=== PATIENT | male | born 1965 | race Caucasian/White ===

== ENCOUNTER 2018-12-02 13:10 | Day surgery (SDC) | payer OTHER ==
[~2018-12-02] VITALS: Ht 177.8 cm; Wt 100.1 kg
[~2018-12-02 13:10] MED LIST: CEPH500 PO; Colace100 MG PO; IBUP800 PO; Miralax17 GM PO; Norco 5-325 Ta1 EACH PO
--- NOTE | 2018-12-02 14:06 | NUR ---
History, Chart, Medications and Allergies reviewed before start of procedure. Patient confirms NPO status and agrees with scheduled surgery. Lungs clear T/O to Auscultation. Patient states colon prep results clear. Pre-Op teaching done. Pt verbalizes understanding. Patient States Post-Procedure ride home has been arranged.
[2018-12-02] MEDS ORDERED: Prilosec Otc20 MG PO (14:16)
--- NOTE | 2018-12-02 14:33 | NUR ---
12/02/18 1433 Dallas Brantley PATIENT DETERMINED TO BE ASA APPROPRIATE FOR PROPOFOL SEDATION PRIOR TO START OF PROCEDURE BY . 3-LEAD EKG REVIEWED WITH PHYSICIAN PRIOR TO START OF PROCEDURE.History, Chart, Medications and Allergies reviewed before start of procedure.MONITOR INTACT WITH CONTINUOUS PULSE OXIMETRY AND INTERMITTENT BP.O2 VIA N/C INTACT THROUGHOUT SEDATION/PROCEDURE.
--- NOTE | 2018-12-02 15:54 | NUR ---
Patient up to Ambulate independently. Gait steady. Discharge instructions reviewed with patient. Patient verbalizes understanding. Copy given to patient to take home. Patient States Post-Procedure ride home has been arranged. Discharged via wheelchair to private car for ride home.
== END 2018-12-02 22:42 | disposition home or self-care (01) ==
LOC: SURS 13:10 → ORSCMMR 13:10 → ORD 14:45 → ORSCMMR 22:42
PROVIDERS: Student in an Organized Health Care Education/Training Program
PROC: 0DBP8ZX Excision of Rectum, Via Natural or Artificial Opening Endoscopic, Diagnostic (ICD-10-PCS; principal; 2018-12-02 14:45)
PROC: 0DBN8ZX Excision of Sigmoid Colon, Via Natural or Artificial Opening Endoscopic, Diagnostic (ICD-10-PCS; principal; 2018-12-02 14:45)
DX: K92.1 Melena (principal); C20 Malignant neoplasm of rectum; D12.5 Benign neoplasm of sigmoid colon; R15.0 Incomplete defecation; R10.9 Unspecified abdominal pain; F17.210 Nicotine dependence, cigarettes, uncomplicated; Z79.899 Other long term (current) drug therapy
CPT/HCPCS: 88305; J2250; J7120

== ENCOUNTER 2019-03-14 06:00 | Day surgery (SDC) | payer OTHER, SELFPAY ==
[~2019-03-14] VITALS: Ht 177.8 cm; Wt 98.9 kg
[~2019-03-14 06:00] MED LIST changes: +ASCO500 PO; +CAPE500; +CYAN500; +IBUP800; +MIRALAX; +OMEGA 3; +Prilosec Otc20 MG PO; +TUMS; +VITAMIN D-32000 UNIT PO; +Voltaren100 GM
--- NOTE | 2019-03-14 07:00 | NUR ---
Ambulatory in Day Surgery. Surgical site prepped with 2% Chlorhexidine cloth wipe. History, Chart, Medications and Allergies reviewed before start of procedure. Lungs clear T/O to Auscultation. Patient confirms NPO status and agrees with scheduled surgery. Pre-Op teaching done. Pt verbalizes understanding. Patient States Post-Procedure ride home has been arranged.
--- NOTE | 2019-03-14 08:40 | NUR ---
PT ALERT, DRESSING TO R CHEST AND NECK D&I. PT PROVIDED WITH COFFEE TO DRINK. BACK TO SEE PATIENT.
--- NOTE | 2019-03-14 09:00 | NUR ---
REVIEWED DISCHARGE INSTRUCTIONS WITH PATIENT. Patient States Post-Procedure ride home has been arranged.
--- NOTE | 2019-03-14 09:12 | NUR ---
Discharged via wheelchair to private car for ride home.
--- NOTE | 2019-03-17 12:52 | NUR ---
03/17/19 1252 Nathalia Landers VERIFICATIONS: EDIT CHART.
== END 2019-03-14 09:12 | disposition home or self-care (01) ==
LOC: ORSCMMR 06:00 → ORD 07:30 → ORSCMMR 07:30
PROVIDERS: Surgery
PROC: B5131ZA Fluoroscopy of Right Jugular Veins using Low Osmolar Contrast, Guidance (ICD-10-PCS; principal; 2019-03-14 07:30)
PROC: 05HM33Z Insertion of Infusion Device into Right Internal Jugular Vein, Percutaneous Approach (ICD-10-PCS; principal; 2019-03-14 07:30)
DX: C20 Malignant neoplasm of rectum (principal); F17.210 Nicotine dependence, cigarettes, uncomplicated; Z79.899 Other long term (current) drug therapy; K21.9 Gastro-esophageal reflux disease without esophagitis
CPT/HCPCS: 77001; C1788; J0690; J1100; J1642; J2250; J2405; J2704; J3010; J7120

== ENCOUNTER 2019-04-03 15:28 | Day surgery (SDC) | payer OTHER | END 2019-04-03 16:00 | disposition home or self-care (01) | LOC: ATC 15:28 | DX: Z45.1 Encounter for adjustment and management of infusion pump (principal); C20 Malignant neoplasm of rectum; F17.200 Nicotine dependence, unspecified, uncomplicated; Z79.899 Other long term (current) drug therapy | CPT/HCPCS: 96523 ==

== ENCOUNTER 2019-07-20 09:42 | Inpatient (IN) | payer OTHER ==
[~2019-07-20] VITALS: Ht 177.8 cm; Wt 95.9 kg
[2019-07-20 09:59] LABS: Source, Urine Clean Catch
[2019-07-20] MEDS ORDERED: TAMS.4ER PO (10:02)
[2019-07-20] MEDS ORDERED: OXYC5 PO (10:02)
[2019-07-20 10:04] LABS: Bilirubin, Urine Neg (Neg); Blood, Urine 4+ (Neg); Glucose Qualitative, Urine Neg (Neg); Ketones, Urine Neg (Neg); Leukocyte Esterase, Urine 3+ (Neg); Nitrite, Urine Pos (Neg); Protein, Urine 3+ (Neg); Specific Gravity, Urine 1.015 (1.003-1.022); Urobilinogen, Urine NORM (Normal)
[2019-07-20 10:15] LABS: Appearance, Urine Turbid (Clear); Color, Urine Yellow (P-Yellow)
[2019-07-20 10:16] LABS: White Blood Cells, Urine TNTC /hpf (0-5)
[2019-07-20 10:17] LABS: Bacteria Many /hpf; Squamous Epithelial Cells Rare /hpf (Few)
[2019-07-20 10:24] LABS: BASOPHILS ABSOLUTE AUTO 0.05 K/mm3 (0.00-0.23); BASOPHILS PERCENT AUTO 0 % (0-2); EOSINOPHILS PERCENT AUTO 1 % (0-6); Hematocrit 36.8 % (37.0-53.0); Hemoglobin 12.3 g/dL (13.5-17.5); IMMATURE GRAN ABSOLUTE AUTO 0.17 K/mm3 (0.00-0.10); IMMATURE GRAN PERCENT AUTO 1 % (0-1); LYMPHOCYTES ABSOLUTE AUTO 0.39 K/mm3 (0.84-5.20); LYMPHOCYTES PERCENT AUTO 2 % (21-46); MONOCYTES ABSOLUTE AUTO 1.03 K/mm3 (0.16-1.47); MONOCYTES PERCENT AUTO 7 % (4-13); Mean Corpuscular HGB 32.6 pg (26.0-34.0); Mean Corpuscular HGB Conc 33.4 g/dL (31.5-36.5); Mean Corpuscular Volume 98 fL (80-100); Mean Platelet Volume 8.7 fL (9.1-12.4); NEUTROPHILS ABSOLUTE AUTO 14.09 K/mm3 (1.96-9.15); NEUTROPHILS PERCENT AUTO 88 % (41-73); Platelet Count 333 K/mm3 (150-400); RDW Standard Deviation 50.7 fL (35.1-46.3); Red Blood Cell Count 3.77 M/mm3 (4.30-5.90); White Blood Cell Count 15.93 K/mm3 (4.00-11.30)
[2019-07-20 10:43] LABS: Alanine Aminotransfer (ALT/SGP 24 U/L (12-78); Albumin, Blood 2.7 g/dL (3.4-5.0); Albumin/Globulin Ratio 0.6 (0.8-1.8); Alk Phos 154 U/L (50-136); Anion Gap 6 mmol/L (6-16); Aspartate Aminotrans (AST/SGOT 22 U/L (12-37); Bilirubin, Total 0.3 mg/dL (0.1-1.0); Blood Urea Nitrogen 22 mg/dL (8-24); CO2, Blood 24 mmol/L (21-32); Calcium, Blood 9.5 mg/dL (8.5-10.1); Chloride, Blood 104 mmol/L (98-108); Creatinine, Blood 0.82 mg/dL (0.60-1.20); Globulin, Blood 4.6 g/dL (2.2-4.0); Glomerular Filtration Rate >60 (60-); Glucose, Blood 188 mg/dL (70-99); Potassium, Blood 3.9 mmol/L (3.5-5.5); Sodium, Blood 134 mmol/L (136-145); Total Protein, Blood 7.3 g/dL (6.4-8.2)
[2019-07-20] MEDS ORDERED: ACET500 PO (13:48)
--- NOTE | 2019-07-20 14:28 | NUR ---
PT ADMITTED PT ADMITTED IN STABLE CONDITION WITH VSS. BLADDER SCAN PERFORMED. OVER 500 IN BLADDER. PT ONLY ABLE TO VOID 100CC. STRAIGHT CATH COMPLETED. 500CC OUTPUT. PT MEDICATED FOR PAIN. IV FLUIDS STARTED. PT ORIENTED TO ROOM. ALL LIGHT IN REACH. DR. LEON CALLED IN REGARDS OF NICOTINE PATCH. 14MG ORDERED PER DR. LEON. WILL CONTINUE TO MONITOR.
--- NOTE | 2019-07-20 18:40 | NUR ---
SHIFT SUMMARY PT STRAIGHT CATHED TWICE THIS SHIFT. BOTH TIMES BLADDER SCAN REVEAL MORE THAN 500CC. PT TOLERATED WELL. PT DOES HAVE FREQUENT SMALL VOIDS. URINE CLEARING UP. NO OTHER CHANGES IN ASSESSMENT AT THIS TIME. VSS. WILL CONTINUE TO MONITOR UNTIL TURNOVER IS COMPLETE.
--- NOTE | 2019-07-21 03:38 | NUR ---
SHIFT SUMMARY PT HAS BEEN RESTING MOST OF THE NIGHT. HE IS Q6H BLADDER SCANS AND WE DID HAVE TO STRAIGHT CATH HIM DUE TO BLADDER SCAN SHOWING >350 CC. HE REPORTED PAIN IN URETHRA AND WAS MEDICATED PER EMAR WHICH SEEMED TO HELP HE HAS BEEN RESTING EVER SINCE. PT EDUCATED TO USE CALL LIGHT IF HE NEEDS ANYTHING. WILL CONTINUE TO MONITOR.
--- NOTE | 2019-07-21 05:01 | NUR ---
PRE MEDICATION PT PRE MEDICATED WITH PAIN MEDICATION FOR STRAIGHT CATHETER PROCEDURE PER PT REQUEST DUE TO PRIOR PAINFUL CATHETERIZAtion.
[2019-07-21 05:10] LABS: BASOPHILS ABSOLUTE AUTO 0.05 K/mm3 (0.00-0.23); BASOPHILS PERCENT AUTO 1 % (0-2); EOSINOPHILS ABSOLUTE AUTO 0.39 K/mm3 (0.00-0.68); EOSINOPHILS PERCENT AUTO 4 % (0-6); Hematocrit 33.7 % (37.0-53.0); IMMATURE GRAN PERCENT AUTO 1 % (0-1); LYMPHOCYTES ABSOLUTE AUTO 0.43 K/mm3 (0.84-5.20); LYMPHOCYTES PERCENT AUTO 5 % (21-46); MONOCYTES ABSOLUTE AUTO 0.82 K/mm3 (0.16-1.47); MONOCYTES PERCENT AUTO 9 % (4-13); Mean Corpuscular HGB 32.8 pg (26.0-34.0); Mean Corpuscular HGB Conc 32.6 g/dL (31.5-36.5); Mean Corpuscular Volume 101 fL (80-100); Mean Platelet Volume 8.8 fL (9.1-12.4); NEUTROPHILS ABSOLUTE AUTO 7.04 K/mm3 (1.96-9.15); NEUTROPHILS PERCENT AUTO 80 % (41-73); Platelet Count 297 K/mm3 (150-400); RDW Standard Deviation 51.3 fL (35.1-46.3); Red Blood Cell Count 3.35 M/mm3 (4.30-5.90); White Blood Cell Count 8.83 K/mm3 (4.00-11.30)
[2019-07-21 05:36] LABS: Anion Gap 7 mmol/L (6-16); Blood Urea Nitrogen 15 mg/dL (8-24); CO2, Blood 26 mmol/L (21-32); Calcium, Blood 9.2 mg/dL (8.5-10.1); Chloride, Blood 107 mmol/L (98-108); Creatinine, Blood 0.79 mg/dL (0.60-1.20); Glomerular Filtration Rate >60 (60-); Glucose, Blood 119 mg/dL (70-99); Sodium, Blood 140 mmol/L (136-145)
--- NOTE | 2019-07-21 14:30 | NUR ---
Logan catheter Pt declined to have straight cath d/t soreness from previous straight caths. Discussed with abdoul Ac ordered.
--- NOTE | 2019-07-21 16:14 | NUR ---
Pt visit this afternoon. Pt is resting in bed and denies pain at this time. Pt reports current regimen is managing pain. Lety is at bedside. Answered some questions and concerns. Deferred many questions to hospitalist. Lety reports plan to be at bedside in the AM for hospitalist rounds. Pt reports adequate support at home and reports no concerns at this time. Spoke with bedside nurses Karl and discussed case. Palliative Care will remain available.
--- NOTE | 2019-07-21 17:38 | NUR ---
Shift Summary A/Ox4. Pleasant and cooperative with care. Able to make needs known. Pt has been ambulating in hallway tolerating it well. Medicated once for pain when urinating and left lateral abdominal pain. Pt refused straight cath d/t soreness and pain when urinating d/t frequency of straight cath; schreiber in-place. Denies N/V/D, denies costovertebral tenderness. VSS, afebrile. Bladder scan this afternoon showed 910mls, schreiber drained 925mLs. No other acute changes this shift.
--- NOTE | 2019-07-22 02:48 | NUR ---
54 year old Male with recent hospitaLIZATION FOR colorectal cancer with permanent colostomy placed on 07/08/19 at [facility]. PT says he has no current cancer that surgery was curative . He is caring for own colostomy. Has 4 weeks off from work post surgery. 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 On tele monitor with NSR. PT had schreiber cath placed yesterday around 1400 for acute urinary retention with greater than 900 retained. PT reports good releif of abd pain post schreiber placement. Tolerating diet low fiber. PT had no output from colostomy x 2 days and he takes miralax daily at home. Miralax and milk of mag orders obtained from DR FROST. Some liquid stool out colostomy now and flatus. Denies acute distress.
[2019-07-22 05:02] LABS: BASOPHILS ABSOLUTE AUTO 0.04 K/mm3 (0.00-0.23); BASOPHILS PERCENT AUTO 1 % (0-2); EOSINOPHILS ABSOLUTE AUTO 0.37 K/mm3 (0.00-0.68); EOSINOPHILS PERCENT AUTO 5 % (0-6); Hemoglobin 11.6 g/dL (13.5-17.5); IMMATURE GRAN ABSOLUTE AUTO 0.14 K/mm3 (0.00-0.10); IMMATURE GRAN PERCENT AUTO 2 % (0-1); LYMPHOCYTES ABSOLUTE AUTO 0.35 K/mm3 (0.84-5.20); LYMPHOCYTES PERCENT AUTO 4 % (21-46); MONOCYTES ABSOLUTE AUTO 0.67 K/mm3 (0.16-1.47); MONOCYTES PERCENT AUTO 8 % (4-13); Mean Corpuscular HGB 32.6 pg (26.0-34.0); Mean Corpuscular HGB Conc 33.1 g/dL (31.5-36.5); Mean Platelet Volume 8.8 fL (9.1-12.4); NEUTROPHILS ABSOLUTE AUTO 6.49 K/mm3 (1.96-9.15); NEUTROPHILS PERCENT AUTO 81 % (41-73); Platelet Count 325 K/mm3 (150-400); RDW Coefficient Variation 13.7 % (11.7-14.2); RDW Standard Deviation 50.2 fL (35.1-46.3); Red Blood Cell Count 3.56 M/mm3 (4.30-5.90); White Blood Cell Count 8.06 K/mm3 (4.00-11.30)
[2019-07-22 05:03] LABS: Mean Corpuscular Volume 98 fL (80-100)
[2019-07-22 05:26] LABS: Anion Gap 7 mmol/L (6-16); Blood Urea Nitrogen 11 mg/dL (8-24); Bun/Creatinine Ratio 15.3 (12.0-20.0); CO2, Blood 25 mmol/L (21-32); Calcium, Blood 9.3 mg/dL (8.5-10.1); Chloride, Blood 107 mmol/L (98-108); Creatinine, Blood 0.72 mg/dL (0.60-1.20); Glomerular Filtration Rate >60 (60-); Glucose, Blood 132 mg/dL (70-99); Potassium, Blood 4.3 mmol/L (3.5-5.5); Sodium, Blood 139 mmol/L (136-145)
[2019-07-22] MEDS ORDERED: FINA5 PO (10:14)
[2019-07-22] MEDS ORDERED: ACET325 PO (10:14)
[2019-07-22] MEDS ORDERED: TOPICAINE 5113 GM UR (10:19)
[2019-07-22] MEDS ORDERED: CEPH500 PO (10:20)
--- NOTE | 2019-07-22 11:23 | NUR ---
PT DISCHARGED TO HOME WITH SPOUSE. HOME HEALTH IN ROOM TO SEE PT PRIOR TO DISCHARGE. IV REMOVED PRIOR TO DISCHARGE. PT AMBULATING INDEPENDENTLY IN [place] THIS AM. PT AND SPOUSE PROVIDED PT EDUCATION AND DISCHARGE INSTRUCTIONS, STATING NO FURTHER QUESTIONS. PT DISCHARGED TO HOME WITH BISHOP CATHETER IN PLACE. PT BELONGINGS WITH PT UPON DISCHARGE. PT AMBULATED OUT OF ROOM DENYING NEED FOR WHEELCHAIR.
== END 2019-07-22 11:03 | disposition home health service (06) | DRG 872 ==
LOC: ER 09:42 → MEDS 09:43 → ENPENDDIS 07-22 10:37 → MEDS 07-22 11:03
PROVIDERS: Physician Assistant; ADMIT Internal Medicine
DX: A41.9 Sepsis, unspecified organism (principal); N39.0 Urinary tract infection, site not specified; C18.9 Malignant neoplasm of colon, unspecified; N40.1 Benign prostatic hyperplasia with lower urinary tract symptoms; R33.8 Other retention of urine; D64.9 Anemia, unspecified; B96.1 Klebsiella pneumoniae [K. pneumoniae] as the cause of diseases classified elsewhere; F17.220 Nicotine dependence, chewing tobacco, uncomplicated; Z92.21 Personal history of antineoplastic chemotherapy; Z93.3 Colostomy status
CPT/HCPCS: 36415; 51701; 71045; 74177; 80048; 80053; 81001; 82607; 82728; 82746; 83540; 83550; 83605; 83690; 85025; 87077; 87086; 87186; 96361; 96365-59; 99285-25; A9270; J0696; J1650; J7030; Q9967

== ENCOUNTER 2023-07-22 12:20 | Emergency (ER) | payer OTHER, BC ==
[~2023-07-22] VITALS: Ht 177.8 cm; Wt 72.6 kg
[~2023-07-22 12:20] MED LIST changes: +ACET325 PO; +ACET500 PO; +FINA5 PO; +OXYC5 PO; +TAMS.4ER PO; +TOPICAINE 5113 GM UR
[2023-07-22 12:39] VITALS: BP 140/94
== END 2023-07-22 13:38 | disposition home or self-care (01) ==
LOC: ER 12:20
DX: S16.1XXA Strain of muscle, fascia and tendon at neck level, initial encounter (principal); X58.XXXA Exposure to other specified factors, initial encounter; Z79.899 Other long term (current) drug therapy; K21.9 Gastro-esophageal reflux disease without esophagitis; Z87.891 Personal history of nicotine dependence
CPT/HCPCS: 72040; 96372; 99283-25; A9270; J1885

== ENCOUNTER 2023-07-29 20:16 | Emergency (ER) | payer OTHER, BC ==
[~2023-07-29] VITALS: Ht 177.8 cm; Wt 111.1 kg
[2023-07-29 20:24] VITALS: BP 150/100
[2023-07-29] MEDS ORDERED: DERMACINRX LID1 EACH TOP (21:41)
[2023-07-29] MEDS ORDERED: Robaxin750 MG PO (21:41)
== END 2023-07-29 21:55 | disposition home or self-care (01) ==
LOC: ER 20:16
DX: M54.2 Cervicalgia (principal); Z79.899 Other long term (current) drug therapy
CPT/HCPCS: 96372; 99283-25; A9270; J1885

== ENCOUNTER 2023-08-19 15:05 | Inpatient (IN) | payer BC, OTHER ==
[~2023-08-19] VITALS: Ht 177.8 cm; Wt 93.5 kg
[2023-08-19] VITALS (8 sets, daily range): BP systolic 128–142; BP diastolic 89–97
[~2023-08-19 15:05] MED LIST changes: +DERMACINRX LID1 EACH TOP; +Robaxin750 MG PO
[2023-08-19] MEDS ORDERED: DEXA4 PO (15:18)
[2023-08-19 15:23] LABS: Base Excess Venous -2.1 mmol/L; PCO2 Venous 53.7 mmHg (38-42); pH Blood Venous 7.27 (7.34-7.37)
[2023-08-19 15:28] LABS: Source, Urine Voided
[2023-08-19 15:36] LABS: BASOPHILS ABSOLUTE AUTO 0.07 K/mm3 (0.00-0.23); BASOPHILS PERCENT AUTO 0 % (0-2); EOSINOPHILS ABSOLUTE AUTO 0.01 K/mm3 (0.00-0.68); EOSINOPHILS PERCENT AUTO 0 % (0-6); Hemoglobin 18.5 g/dL (13.5-17.5); IMMATURE GRAN ABSOLUTE AUTO 0.39 K/mm3 (0.00-0.10); IMMATURE GRAN PERCENT AUTO 2 % (0-1); LYMPHOCYTES ABSOLUTE AUTO 0.77 K/mm3 (0.84-5.20); LYMPHOCYTES PERCENT AUTO 4 % (21-46); MONOCYTES ABSOLUTE AUTO 1.02 K/mm3 (0.16-1.47); MONOCYTES PERCENT AUTO 6 % (4-13); Mean Corpuscular HGB 29.5 pg (26.0-34.0); Mean Corpuscular HGB Conc 31.3 g/dL (31.5-36.5); Mean Corpuscular Volume 94 fL (80-100); Mean Platelet Volume 10.9 fL (9.1-12.4); NEUTROPHILS ABSOLUTE AUTO 15.27 K/mm3 (1.96-9.15); NEUTROPHILS PERCENT AUTO 87 % (41-73); Platelet Count 260 K/mm3 (150-400); RDW Coefficient Variation 13.2 % (11.7-14.2); Red Blood Cell Count 6.27 M/mm3 (4.30-5.90); White Blood Cell Count 17.53 K/mm3 (4.00-11.30)
[2023-08-19 15:37] LABS: Bilirubin, Urine Neg (Neg); Blood, Urine 5+ (Neg); Glucose Qualitative, Urine 4+ (Neg); Ketones, Urine 1+ (Neg); Leukocyte Esterase, Urine Neg (Neg); Nitrite, Urine Neg (Neg); Protein, Urine 2+ (Neg); Urobilinogen, Urine NORM (Normal)
[2023-08-19 15:40] LABS: Hematocrit 59.1 % (37.0-53.0)
[2023-08-19 15:50] LABS: Appearance, Urine Clear (Clear); Color, Urine Pale Yellow (P-Yellow)
[2023-08-19 15:53] LABS: Albumin, Blood 3.5 g/dL (3.4-5.0); Albumin/Globulin Ratio 0.8 (0.8-1.8); Bacteria Rare /hpf; Bilirubin, Total 0.8 mg/dL (0.1-1.0); Bun/Creatinine Ratio 49.1 (12.0-20.0); Creatinine, Blood 1.71 mg/dL (0.60-1.20); Globulin, Blood 4.2 g/dL (2.2-4.0); Hyaline Casts 0-2 /lpf (0-2); Potassium, Blood 5.9 mmol/L (3.5-5.5); Squamous Epithelial Cells Rare /hpf (Few); Total Protein, Blood 7.7 g/dL (6.4-8.2); White Blood Cells, Urine 0-2 /hpf (0-5)
[2023-08-19 15:55] LABS: Phosphorus, Blood 7.4 mg/dL (2.5-4.9)
[2023-08-19 16:41] LABS: International Normalized Ratio 1.04; Prothrombin Time Results 10.9 Sec (9.7-11.5)
[2023-08-19 17:31] LABS: Glucose, Blood 1158 mg/dL (70-99)
[2023-08-19 18:42] LABS: Source, Urine Foley catheter
[2023-08-19 18:49] LABS: Appearance, Urine Clear (Clear); Bilirubin, Urine Neg (Neg); Blood, Urine 5+ (Neg); Glucose Qualitative, Urine 4+ (Neg); Ketones, Urine 1+ (Neg); Leukocyte Esterase, Urine Neg (Neg); Nitrite, Urine Neg (Neg); Protein, Urine 2+ (Neg); Urobilinogen, Urine NORM (Normal)
[2023-08-19 18:57] LABS: Color, Urine Pale Yellow (P-Yellow)
[2023-08-19 18:58] LABS: Hyaline Casts 0-2 /lpf (0-2); White Blood Cells, Urine 0-2 /hpf (0-5)
[2023-08-19 18:59] LABS: Bacteria Not Seen /hpf; Squamous Epithelial Cells Rare /hpf (Few)
[2023-08-19 19:50] LABS: Bun/Creatinine Ratio 56.9 (12.0-20.0); Calcium, Blood 9.3 mg/dL (8.5-10.1); Creatinine, Blood 1.37 mg/dL (0.60-1.20); Potassium, Blood 4.5 mmol/L (3.5-5.5)
--- NOTE | 2023-08-19 19:53 | NUR ---
REPORT RCVD FROM JOHN GARG IN ER.
[2023-08-19 20:40] LABS: Glucose, Blood 841 mg/dL (70-99)
[2023-08-19 21:53] LABS: Calcium, Blood 9.6 mg/dL (8.5-10.1); Creatinine, Blood 1.31 mg/dL (0.60-1.20); Potassium, Blood 4.7 mmol/L (3.5-5.5)
[2023-08-19 22:19] LABS: Glucose, Blood 755 mg/dL (70-99)
--- NOTE | 2023-08-19 23:21 | NUR ---
ASSUMED CARE OF PT AT 2014 PT A/O X3-4. INSULIN AT 6 UPON ARRIVAL, CHANGED RATE TO 2 UNITS/HR AT THIS TIME. BISHOP CATH PATENT AND DRAINING TO GRAVITY. VITALS WNL. ATTEMPT FOR CBG AT THIS TIME. CRITICAL HIGH WITH LAB ON THE WAY FOR ANOTHER DRAW. LAST CBG 1158, WITH PENDING GLUCOSE FROM LAB AT THIS TIME. SEE FULL ASSESSMENT FOR FURTHER INFORMATION.
[2023-08-19 23:31] LABS: Glucose, Blood 698 mg/dL (70-99)
[2023-08-20] VITALS (46 sets, daily range): BP systolic 103–155; BP diastolic 39–106
[2023-08-20 00:16] LABS: Glucose, Blood 654 mg/dL (70-99)
[2023-08-20 01:29] LABS: Glucose, Blood 556 mg/dL (70-99)
[2023-08-20 03:38] LABS: BASOPHILS ABSOLUTE AUTO 0.03 K/mm3 (0.00-0.23); BASOPHILS PERCENT AUTO 0 % (0-2); EOSINOPHILS ABSOLUTE AUTO 0.01 K/mm3 (0.00-0.68); EOSINOPHILS PERCENT AUTO 0 % (0-6); Hematocrit 50.6 % (37.0-53.0); Hemoglobin 17.2 g/dL (13.5-17.5); IMMATURE GRAN ABSOLUTE AUTO 0.26 K/mm3 (0.00-0.10); IMMATURE GRAN PERCENT AUTO 1 % (0-1); LYMPHOCYTES ABSOLUTE AUTO 0.93 K/mm3 (0.84-5.20); LYMPHOCYTES PERCENT AUTO 5 % (21-46); MONOCYTES ABSOLUTE AUTO 1.23 K/mm3 (0.16-1.47); MONOCYTES PERCENT AUTO 6 % (4-13); Mean Corpuscular HGB 29.8 pg (26.0-34.0); Mean Corpuscular Volume 88 fL (80-100); Mean Platelet Volume 10.4 fL (9.1-12.4); NEUTROPHILS ABSOLUTE AUTO 17.01 K/mm3 (1.96-9.15); NEUTROPHILS PERCENT AUTO 87 % (41-73); Platelet Count 194 K/mm3 (150-400); RDW Coefficient Variation 13.2 % (11.7-14.2); RDW Standard Deviation 41.7 fL (35.1-46.3); Red Blood Cell Count 5.78 M/mm3 (4.30-5.90); White Blood Cell Count 19.47 K/mm3 (4.00-11.30)
[2023-08-20 03:55] LABS: Magnesium, Blood 3.4 mg/dL (1.6-2.4)
[2023-08-20 04:01] LABS: Bun/Creatinine Ratio 53.8 (12.0-20.0); Calcium, Blood 8.8 mg/dL (8.5-10.1); Creatinine, Blood 1.19 mg/dL (0.60-1.20); Potassium, Blood 4.1 mmol/L (3.5-5.5)
--- NOTE | 2023-08-20 04:30 | NUR ---
THIS RN IN ROOM TO HELP PATIENT USE URINAL. PT WAS PLEASANT AND COOPERATIVE. SAID THANK YOU FOR EVERYTHING. THIS RN WALKED OUT OF THE ROOM FOR LESS THAN 1 MINUTE. PT BEGAN PULLING LEADS OFF AND STATING "HOW LONG IS THIS GOING TO TAKE I HAVE THINGS FUCKING DO". PT REORIENTED AND REMINDED THAT HE IS IN ICU AND DETOXING. PT STILL ANGRY AND CUSSING. CALL LIGHT IN REACH, BED IN LOW POSITION, BED ALARM ON.
--- NOTE | 2023-08-20 05:41 | NUR ---
END OF SHIFT SUMMARY PT A/O X4. PLEASANT AND COOPERATIVE WITH CARE. SPOUSE CALLED THIS AM AND IS ON HER WAY IN. RESP- RA NO ISSUES. NON-PRODUCTIVE COUGH NOTED. CARDIAC- SR WITH HR 90'S. SBP 130'S. DENIES CP/SOB. GI,- BISHOP CATH IN PLACE DRAINING TO GRAVITY WITH YELLOW STRAW COLORED URINE PRESENT. COLOSTOMY BAG CHANGED THIS AM. STOOL IN SOFT AND BROWN IN COLOR. INTEG- INTACT. INSULIN CURRENTLY AT 4.5 AND CONTINUED TITRATION. MONITORING UNTIL AM RN GIVEN REPORT.
[2023-08-20 08:08] LABS: Bun/Creatinine Ratio 56.5 (12.0-20.0); Creatinine, Blood 0.97 mg/dL (0.60-1.20); Potassium, Blood 3.9 mmol/L (3.5-5.5)
--- NOTE | 2023-08-20 13:27 | NUR ---
Spiritual care visit conducted. Patient is sitting on chair and has family present in the room. I listen as they share about the patient's battles with cancer over the last 5 yrs, the solid family and fiend support system that he has in place and the recent spiritual journey that he has entered into. He shares about how he is processing his terminal diagnosis, and the challenges in his thoughts to not live in the "why-me?" We explore meaning, purpose and prayer. I normalize his fears and feelings, reinforce helpful attitudes and perspectives and provide therapeutic listening and prayer. Patient displays evidence of greater peace and clarity about his place in shifting prognosis. I will continue to remain available to patient and family.
[2023-08-20 16:47] LABS: Bun/Creatinine Ratio 39.2 (12.0-20.0); Calcium, Blood 8.5 mg/dL (8.5-10.1); Creatinine, Blood 1.2 mg/dL (0.60-1.20); Potassium, Blood 3.7 mmol/L (3.5-5.5)
--- NOTE | 2023-08-20 18:21 | NUR ---
SHIFT SUMMARY PATIENT REMAINS ON INSULIN GTT. LATEST CBG 179-CALL MADE TO DR. ANDERSEN AND ORDERS RECIEVED FOR LANTUS 40 UNITS SC NOW, HUMALOG MEDIUM SLIDING SCALE, AND Q4H CBG. ORDERS PLACED AND AWAITING LANTUS FROM PHARMACY. 10/02 NS REMAINS @ 75 ML/HR X 1 BAG. BISHOP CATHETER REMOVED THIS SHIFT AND PATIENT HAD 100ML URINE OUT AFTER BISHOP REMOVAL. BM VIA OSTOMY THIS SHIFT. PATIENT AMBULATED AROUND THE UNIT WITH THE HELP OF PT. VSS. NO ACUTE EVENTS THIS SHIFT.
--- NOTE | 2023-08-20 19:31 | NUR ---
ASSUMED CARE OF PT AT 1910 PT RESTING IN BED WITH SPOUSE ALYSSA AT BEDSIDE DURING BEDSIDE SHIFT REPORT. VITALS WNL SEE FULL ASSESSMENT FOR FURTHER DETAILS.
--- NOTE | 2023-08-20 23:24 | NUR ---
CHEM BG. CHECKED PT 1 HOURS AFTER OFF OF INSULIN DRIP. 61 AT THIS TIME. PT GIVEN JUICE, CRACKERS, AND PEANUT BUTTER. WILL CHECK IN 30 MINUTES AGAIN.
[2023-08-21] VITALS (9 sets, daily range): BP systolic 109–129; BP diastolic 62–89
[2023-08-21 02:42] LABS: Hematocrit 40.4 % (37.0-53.0); Hemoglobin 13.8 g/dL (13.5-17.5); Mean Corpuscular HGB 30.1 pg (26.0-34.0); Mean Corpuscular HGB Conc 34.2 g/dL (31.5-36.5); Mean Corpuscular Volume 88 fL (80-100); Mean Platelet Volume 10.2 fL (9.1-12.4); Platelet Count 130 K/mm3 (150-400); RDW Standard Deviation 41.9 fL (35.1-46.3); Red Blood Cell Count 4.58 M/mm3 (4.30-5.90); White Blood Cell Count 12.67 K/mm3 (4.00-11.30)
[2023-08-21 03:28] LABS: Bun/Creatinine Ratio 42.3 (12.0-20.0); Calcium, Blood 8.1 mg/dL (8.5-10.1); Creatinine, Blood 0.83 mg/dL (0.60-1.20); Potassium, Blood 3.8 mmol/L (3.5-5.5)
--- NOTE | 2023-08-21 06:04 | NUR ---
END OF SHIFT SUMMARY A/O X4. SPOUSE IN TO ROOM THIS AM. RESP- RA WITHOUT ISSUES CARDIAC- SR, HR 80'S-90'S DEPENDING ON ACTIVITY. NO ACUTE ISSUES TO REPORT. GI,- USES URINAL AT BEDSIDE. NO BM THIS SHIFT. CHEM BG SHIFTING DRASTICLY THROUGHOUT THE NIGHT POST DC OF INSULIN DRIP. PT GIVEN ONE SMALL PEANUT BUTTER CONTAINER, ONE PACKAGE OF CRACKERS, AND ONE APPLE JUICE WHEN CHEM BG RESULTED 61. 30 MINUTES LATER PT CHEM BG ABOVE 200. NO OTHER ACUTE CHANGED TO REPORT. WILL CONTINUE TO MONITOR UNTIL REPORT GIVEN TO AM RN.
--- NOTE | 2023-08-21 09:01 | NUR ---
CARE OF PT ASSUMED AT 0700. PT SLEEPING, AWAKENS TO VOICE, ORIENTED X3, ANSWERING QUESTIONS APPROPRIATELY. PT'S AT BEDSIDE, VOICES ANXIETY REGARDING PT'S CARE BY MD; PT'S MADE A PHONE CALL TO PT'S ONCOLOGIST DR SNOW AND PCP TO COME SEE PT IN HOSPITAL. I SPOKE W PT PRIVATELY AND INFORMED HIM HE COULD ASK TO CHANGE MD'S; PT STATED HE WOULD NOT LIKE TO DO THAT AT THIS TIME AND WOULD LIKE TO KEEP CURRENT MD. PT DENIES C/O PAIN, NAUSEA. PT SITTING AT BEDSIDE EATING BREAKFAST. DR ANDERSEN AT BEDSIDE THIS AM AND SPOKE W BOTH PT AND PT'S FOR AT LEAST 15MIN. PT NOW MEDICAL STATUS NO TELE; AWAITING ON AIC. OSTOMY BAG CHANGED IT HAD DETACHED FROM SKIN. SKIN PREPPED, OSTOMY PASTE APPLIED. STOOL SOFT, SEMI FORMED.
--- NOTE | 2023-08-21 10:35 | NUR ---
OT WORKED W PT. PT AMBULATED W OT IN HALLWAYS; PT FELIX WELL.
--- NOTE | 2023-08-21 15:17 | NUR ---
Spiritual care visit conducted. Patient is lying in bed and alert. He tells me about his hobbies and the good people and memories he has. We talk about those things that he can draw from for coping in the struggles. He talks about his 12 yrs with his dieter and how they met. We talk about hope and cyndy and patient shows signs of being up lifted by it. I provide prayer and encouragement. Dieter and the patient display evidence of greater hope. I will continue to remain available to patient and family.
--- NOTE | 2023-08-21 16:02 | NUR ---
RIDE SET-UP THROUGH [facility] TO TAKE JALEN TO THE [facility] ON 08/22/23 FOR A 0730 XRT APPT. 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
--- NOTE | 2023-08-21 18:17 | NUR ---
TRANSFER 362 PT REPORT RECEIVED FROM JANETT GARG. PT ARRIVED VIA W/C ACCOMPANIED BY MALIK. PT ALERT. VSS. TALKED ABOUT TRANSFER TO [facility] TOM[facility]ROW. RECEIVED SCRIPT FOR GLUCOMETER GAVE TO PT TO CCU NURSE TOMORROW. NO COMPLAINTS AT THIS TIME. CONTINUE POC.
[2023-08-22 05:11] VITALS: BP 107/70
[2023-08-22 05:44] LABS: Albumin, Blood 2.6 g/dL (3.4-5.0); Anion Gap 4 mmol/L (6-16); Blood Urea Nitrogen 27 mg/dL (8-24); Bun/Creatinine Ratio 40.8 (12.0-20.0); CO2, Blood 27 mmol/L (21-32); Calcium, Blood 8.5 mg/dL (8.5-10.1); Chloride, Blood 111 mmol/L (98-108); Creatinine, Blood 0.66 mg/dL (0.60-1.20); Glomerular Filtration Rate 110 (60-); Glucose, Blood 220 mg/dL (70-99); Magnesium, Blood 2.7 mg/dL (1.6-2.4); Phosphorus, Blood 2.6 mg/dL (2.5-4.9); Potassium, Blood 4.1 mmol/L (3.5-5.5); Sodium, Blood 142 mmol/L (136-145)
[2023-08-22 07:12] VITALS: BP 114/78
--- NOTE | 2023-08-22 07:33 | NUR ---
[facility] PT TRANSPORTED BY W/C TO [facility]. SNACK PROVIDED AND CBG 220 COVERED. CONTINUE POC.
--- NOTE | 2023-08-22 13:11 | NUR ---
NOTE PT WAS ABLE TO DEMONSTRATE HOW TO USE INSULIN OPNS,SLIDING SCALE, NEW GLUCOMETER, LANCETS AND REPEAT BACK LOW BLOOD SUGAR PROTOCOL. CONTINUE POC.
[2023-08-22] MEDS ORDERED: BASAGLAR K100 UNIT/3 SC (13:50)
--- NOTE | 2023-08-22 14:28 | NUR ---
Spiritual care visit conducted. Patient tells me about the plan to d/c him today to home. He talks about the things he will do once he is home and his plans with working through the medical issues as they come. Lety shares about the family unit complications and we talk about the ways to manage in the days to come. We work on a spiritual care plan and I provide therapeutic listening and prayer. Patient responded well and showed signs of encoruaged in his cyndy. I will continue to remain available to patient and family.
--- NOTE | 2023-08-22 15:05 | NUR ---
DISCHARGE DISCHARGE VIA W/C ACCOMPANIED BY RN. REVIEWED DISCHARGE TEACHING OF INSULIN AND GLUCOMETER. THEY WILL CALL [facility] A FOLLOW UP APPOINTMENT ON THEIR WAY HOME. CONTINUE POC.
== END 2023-08-22 15:00 | disposition home or self-care (01) | DRG 640 ==
LOC: ER 15:05 → MEDS 19:26 → ICUE 19:26 → MEDS 08-21 16:43
PROVIDERS: Emergency Medicine; Internal Medicine; ADMIT Internal Medicine
DX: E87.0 Hyperosmolality and hypernatremia (principal); G92.8 Other toxic encephalopathy; G93.6 Cerebral edema; C20 Malignant neoplasm of rectum; C79.31 Secondary malignant neoplasm of brain; C78.02 Secondary malignant neoplasm of left lung; C78.01 Secondary malignant neoplasm of right lung; N17.9 Acute kidney failure, unspecified; Z66 Do not resuscitate; D69.6 Thrombocytopenia, unspecified; K21.9 Gastro-esophageal reflux disease without esophagitis; N40.1 Benign prostatic hyperplasia with lower urinary tract symptoms; R33.8 Other retention of urine; Z79.899 Other long term (current) drug therapy; Z86.19 Personal history of other infectious and parasitic diseases; Z87.440 Personal history of urinary (tract) infections; Z85.038 Personal history of other malignant neoplasm of large intestine; F17.210 Nicotine dependence, cigarettes, uncomplicated; Z98.890 Other specified postprocedural states
CPT/HCPCS: 36415; 51702; 70450; 71045; 80048; 80053; 80069; 81001; 82803; 82947; 83036; 83605; 83735; 84100; 84145; 85025; 85027; 85610; 85730; 87040; 93005; 93010; 96361; 96365; 96375; 97116; 97162; 97166; 97530; 97535; 99285-25; A9270; C1751; J0692; J1100; J1650; J1815; J7030; J7050

== ENCOUNTER 2023-09-14 08:25 | Day surgery (SDC) | payer OTHER ==
[~2023-09-14] VITALS: Ht 177.8 cm; Wt 96.3 kg
[~2023-09-14 08:25] MED LIST changes: +BASAGLAR K100 UNIT/3 SC; +DEXA4 PO
[2023-09-14] MEDS ORDERED: HUMALOG KW100 UNIT/1 SC (09:00)
[2023-09-14] MEDS ORDERED: Vitamin D1000 UNI1 PO (09:01)
[2023-09-14 10:30] VITALS: BP 102/75
--- NOTE | 2023-09-14 10:38 | NUR ---
09/14/23 1038 KEVYN HER XRAY TAKEN 1037 AWAITING PLACEMENT CONFIRMATION BEFORE PT TRANSFERS TO CHAIR AND HAS DRINK
== END 2023-09-14 11:05 | disposition home or self-care (01) ==
LOC: ORSCSDS 08:25
PROVIDERS: Surgery
PROC: B543ZZA Ultrasonography of Right Jugular Veins, Guidance (ICD-10-PCS; principal; 2023-09-14 09:30)
PROC: 0JH63WZ Insertion of Totally Implantable Vascular Access Device into Chest Subcutaneous Tissue and Fascia, Percutaneous Approach (ICD-10-PCS; principal; 2023-09-14 09:30)
PROC: 05HM33Z Insertion of Infusion Device into Right Internal Jugular Vein, Percutaneous Approach (ICD-10-PCS; principal; 2023-09-14 09:30)
DX: C20 Malignant neoplasm of rectum (principal); C79.31 Secondary malignant neoplasm of brain; C78.7 Secondary malignant neoplasm of liver and intrahepatic bile duct; E11.9 Type 2 diabetes mellitus without complications; Z79.84 Long term (current) use of oral hypoglycemic drugs; Z79.899 Other long term (current) drug therapy
CPT/HCPCS: 77001; 82947; C1788; J0690; J1642; J2001; J2250; J2405; J2704; J2795; J3010; J7120

== ENCOUNTER 2024-12-30 13:55 | Inpatient (IN) | payer OTHER ==
[~2024-12-30] VITALS: Ht 177.8 cm; Wt 97.5 kg
[~2024-12-30 13:55] MED LIST changes: +HUMALOG KW100 UNIT/1 SC; +Vitamin D1000 UNI1 PO
[2024-12-30 14:33] LABS: BASOPHILS PERCENT AUTO 1 % (0-2); EOSINOPHILS ABSOLUTE AUTO 0.29 K/mm3 (0.00-0.68); EOSINOPHILS PERCENT AUTO 3 % (0-6); Hematocrit 39.1 % (37.0-53.0); Hemoglobin 13.2 g/dL (13.5-17.5); IMMATURE GRAN ABSOLUTE AUTO 0.11 K/mm3 (0.00-0.10); IMMATURE GRAN PERCENT AUTO 1 % (0-1); LYMPHOCYTES ABSOLUTE AUTO 1.14 K/mm3 (0.84-5.20); LYMPHOCYTES PERCENT AUTO 11 % (21-46); MONOCYTES ABSOLUTE AUTO 0.69 K/mm3 (0.16-1.47); MONOCYTES PERCENT AUTO 6 % (4-13); Mean Corpuscular HGB 30.8 pg (26.0-34.0); Mean Corpuscular HGB Conc 33.8 g/dL (31.5-36.5); Mean Corpuscular Volume 91 fL (80-100); Mean Platelet Volume 8.8 fL (9.1-12.4); NEUTROPHILS ABSOLUTE AUTO 8.41 K/mm3 (1.96-9.15); NEUTROPHILS PERCENT AUTO 78 % (41-73); Platelet Count 338 K/mm3 (150-400); RDW Coefficient Variation 13.2 % (11.7-14.2); RDW Standard Deviation 44.2 fL (35.1-46.3); Red Blood Cell Count 4.29 M/mm3 (4.30-5.90); White Blood Cell Count 10.74 K/mm3 (4.00-11.30)
[2024-12-30 15:00] LABS: Albumin, Blood 3.3 g/dL (3.4-5.0); Albumin/Globulin Ratio 0.7 (0.8-1.8); Bilirubin, Total 0.5 mg/dL (0.1-1.0); Calcium, Blood 9.8 mg/dL (8.5-10.1); Creatinine, Blood 0.75 mg/dL (0.60-1.20); Globulin, Blood 4.6 g/dL (2.2-4.0); Potassium, Blood 3.7 mmol/L (3.5-5.5); Total Protein, Blood 7.9 g/dL (6.4-8.2)
[2024-12-30] MEDS ORDERED: Methocarbamol 500 MG Tab PO ONE (15:55)
[2024-12-30 16:44] LABS: Source, Urine Clean Catch
[2024-12-30 16:51] LABS: Appearance, Urine Cloudy (Clear); Bilirubin, Urine Neg (Neg); Blood, Urine 3+ (Neg); Color, Urine Yellow (P-Yellow); Glucose Qualitative, Urine 1+ (Neg); Ketones, Urine 1+ (Neg); Leukocyte Esterase, Urine 3+ (Neg); Nitrite, Urine Pos (Neg); Protein, Urine 3+ (Neg); Urobilinogen, Urine NORM (Normal)
[2024-12-30 17:02] LABS: White Blood Cells, Urine TNTC /hpf (0-5)
[2024-12-30 17:04] LABS: Bacteria Many /hpf; Hyaline Casts 0-2 /lpf (0-2); Squamous Epithelial Cells Few /hpf (Few); Transitional Epithelial Cells Rare /hpf (0-Rare)
[2024-12-30] MEDS ORDERED: CefTRIAXone Sodium 2,000 MG in NS 100 ML IV ONE (17:15)
[2024-12-30] MEDS ORDERED: Dexamethasone Sod Phos 10 MG/ML 1ML VIAL IV ONE (18:45)
[2024-12-30] MEDS ORDERED: NS 1,000 ML IV SCH (19:55)
[2024-12-30] MEDS ORDERED: Ondansetron HCl 2 MG / ML 2ML Vial IV PRN (19:55)
[2024-12-30] MEDS ORDERED: NS 1,000 ML IV ONE (20:00)
[2024-12-30] MEDS ORDERED: Insulin Glargine-Yfgn 100 Unit/mL 3 ML SYR SC SCH (20:00)
[2024-12-30] MEDS ORDERED: Insulin Human Lispro 100 Units/ML 3ML Syringe SC SCH (21:00)
[2024-12-30] MEDS ORDERED: Lactobacil 2-S.Thermo-Bifido 1 1 Cap PO SCH (21:00)
[2024-12-30] MEDS ORDERED: DULO30 PO (21:08)
[2024-12-30] MEDS ORDERED: HYDR1TAB94 PO (21:09)
[2024-12-30] MEDS ORDERED: LEVE500 PO (21:09)
[2024-12-30 21:54] VITALS: BP 127/82
[2024-12-30] MEDS ORDERED: LevETIRAcetam 500 MG Tab PO SCH (22:45)
--- NOTE | 2024-12-30 23:03 | NUR ---
TRANSFER NOTE: PT AOX4 SLID FROM [facility] TO BED. WET, CHANGED AND NEW MALE PUREWICK IN PLACE. PT ORIENTED TO ROOM. CALL LIGHT IN REACH. BED IN LOWEST POSITION, CONTINUING CARE.
[2024-12-31] MEDS ORDERED: dexAMETHasone 4 MG TAB PO SCH
[2024-12-31] MEDS ORDERED: Cyclobenzaprine HCl 10 MG Tab PO ONE (02:40)
[2024-12-31] MEDS ORDERED: Calcium Carbonate 500 MG Tab Chew PO PRN (02:40)
--- NOTE | 2024-12-31 04:36 | NUR ---
SHIFT SUMMARY: PT AOX4 ORIENTED TO ROOM, CALLS APPROPRIATELY. PT COMPLAINED OF SOME HEART BURN AND MUSCLE SPASMS IN THE R LEG KEEPING HIM UP. PROVIDER NOTIFIED AND MEDICATED PER EMR. STATES THAT HIS L LEG WIGGLED ITS WAY OUT OF BED AND WAS FLACCID, NO RISK OF FALL, BED RAIL PUT UP IN CASE. PT STATES INCREASING INCONTINENCE SINCE BRAIN SURGERY, MALE PUREWICK IN PLACE, GOOD OUTPUT. PT TOLERATING MEDICATIONS WELL, NO ACUTE EVENTS OVERNIGHT. OSTOMY CLEAN INSIDE BELT. PT AWAITING MRI. PT IN BED SLEEPING, BED IN LOWEST POSITION, CALL LIGHT IN REACH. CONTINUING CARE.
[2024-12-31 05:02] VITALS: BP 134/96
[2024-12-31 07:12] VITALS: BP 124/80
[2024-12-31] MEDS ORDERED: Enoxaparin 40 MG/0.4 ML SYR SC SCH (09:00)
[2024-12-31] MEDS ORDERED: HYDROcodone 5-APAP 325 TAB PO PRN (14:45)
[2024-12-31 15:42] VITALS: BP 125/80
--- NOTE | 2024-12-31 16:58 | NUR ---
Patient and his spouse Lety are known to me from prior hospital admissions. They immediately tell me about the return of the cancer and the brain surgery that he endured and the complications that he is having currently. He shares about meaningful experiences, the stress this has been on relationships and the strength they feel from all those who are pulling for them and praying. I provided therapeutic listening and prayer. Patient and Lety responded well and showed signs of greater peace. I will continue to remain available to patient and family.
[2024-12-31] MEDS ORDERED: CefTRIAXone Sodium 1,000 MG in NS 100 ML IV SCH (18:00)
[2024-12-31 19:52] VITALS: BP 119/75
[2024-12-31 23:39] VITALS: BP 116/75
--- NOTE | 2025-01-01 04:12 | NUR ---
SHIFT SUMMARY 59 YR M ADMITTED ON 12/30/24. FULL CODE. NO ACUTE CHANGES THIS SHIFT. NO C/O PAIN OR DISCOMFORT. PT HAD MRI ON 12/31/24. HE IS PLEASANT AND COOPERATIVE WITH CARE. PUREWIK IN PLACE AND WORKING WELL WITH GOOD OUTPUT. NO NEW CHANGES TO REPORT. BED IN LOW POSITION AND CALL LIGHT IN REACH.
[2025-01-01 04:57] VITALS: BP 117/74
[2025-01-01 06:01] LABS: BASOPHILS ABSOLUTE AUTO 0.02 K/mm3 (0.00-0.23); BASOPHILS PERCENT AUTO 0 % (0-2); EOSINOPHILS PERCENT AUTO 0 % (0-6); Hematocrit 34.8 % (37.0-53.0); Hemoglobin 11.8 g/dL (13.5-17.5); IMMATURE GRAN ABSOLUTE AUTO 0.19 K/mm3 (0.00-0.10); IMMATURE GRAN PERCENT AUTO 1 % (0-1); LYMPHOCYTES ABSOLUTE AUTO 1.04 K/mm3 (0.84-5.20); LYMPHOCYTES PERCENT AUTO 6 % (21-46); MONOCYTES ABSOLUTE AUTO 0.44 K/mm3 (0.16-1.47); MONOCYTES PERCENT AUTO 2 % (4-13); Mean Corpuscular HGB 30.7 pg (26.0-34.0); Mean Corpuscular HGB Conc 33.9 g/dL (31.5-36.5); Mean Corpuscular Volume 91 fL (80-100); Mean Platelet Volume 8.9 fL (9.1-12.4); NEUTROPHILS ABSOLUTE AUTO 17.07 K/mm3 (1.96-9.15); NEUTROPHILS PERCENT AUTO 91 % (41-73); Platelet Count 316 K/mm3 (150-400); RDW Coefficient Variation 13.2 % (11.7-14.2); RDW Standard Deviation 43.4 fL (35.1-46.3); Red Blood Cell Count 3.84 M/mm3 (4.30-5.90); White Blood Cell Count 18.76 K/mm3 (4.00-11.30)
[2025-01-01 06:27] LABS: Bun/Creatinine Ratio 25.6 (12.0-20.0); Calcium, Blood 9.3 mg/dL (8.5-10.1); Creatinine, Blood 0.59 mg/dL (0.60-1.20); Potassium, Blood 4.2 mmol/L (3.5-5.5)
[2025-01-01 07:17] VITALS: BP 111/79
[2025-01-01] MEDS ORDERED: VISBIOME 112.51 EACH PO (11:49)
[2025-01-01] MEDS ORDERED: CEFP200 (11:50)
--- NOTE | 2025-01-01 12:31 | NUR ---
SHIFT SUMMARY AND DISCHARGE PATIENT ALERT AND INTERACTIVE. PATIENT DENIES ANY PAIN AT THIS TIME. PATIENT TEARFUL AT TIMES. PATIENT AWARE OF RESULTS FROM MRI.PATIENT ABLE TO STAND WITH WALKER AND GAIT BELT TO PIVOT TRANSFER. AT BEDSIDE MOST OF MORNING AND PRESENT FOR DISCUSSION WITH PROVIDERS. DISCHARGE INSTRUCTIONS REVIEWED WITH . PATIENT TAKEN TO [facility] VIA WHEELCHAIR TRANSPORT. BELONGINGS SENT WITH .
== END 2025-01-01 12:05 | disposition home health service (06) | DRG 92 ==
LOC: ER 13:55 → MEDS 19:52 → ERHOLD 19:52 → MEDS 21:14
PROVIDERS: Student in an Organized Health Care Education/Training Program; ADMIT Student in an Organized Health Care Education/Training Program
DX: R20.0 Anesthesia of skin (principal); C19 Malignant neoplasm of rectosigmoid junction; C79.31 Secondary malignant neoplasm of brain; C78.02 Secondary malignant neoplasm of left lung; C78.01 Secondary malignant neoplasm of right lung; N13.6 Pyonephrosis; Z93.3 Colostomy status; K21.9 Gastro-esophageal reflux disease without esophagitis; N40.0 Benign prostatic hyperplasia without lower urinary tract symptoms; E11.9 Type 2 diabetes mellitus without complications; F17.210 Nicotine dependence, cigarettes, uncomplicated
CPT/HCPCS: 36415; 70450; 70553; 72141; 72157; 72158; 74177; 80048; 80053; 81001; 82947; 83735; 85025; 87077; 87086; 87186; 93005; 93010; 96365-59; 96375; 99285-25; A9270; A9579; G0378; J0696; J1100; J1650; J1815; J2405; J7030; Q9967